=== PATIENT | female | born 1985 | race Caucasian/White ===

== ENCOUNTER → 2016-10-22 | Outpatient (CLI) | payer BC ==
[~2016-10-22] MED LIST: HYDR-3702 PO; IBUP-15 PO; NORG1TAB15 PO; PREN1TAB79 PO
--- NOTE | 2016-10-22 14:53 | Diagnostic Imaging Report ---
PROCEDURE: CT sinuses without contrast TECHNIQUE: Multiple contiguous axial images were obtained through the sinuses without the use of intravenous contrast. Coronal and sagittal reformations were then performed. INDICATION: Abnormal sense of smell. FINDINGS: Bone windows show multiple polyps or retention cysts within the maxillary sinuses; largest along the antrum bilaterally measuring approximately 1 cm. Mild mucosal thickening is noted along the maxillary regan. The ostiomeatal complex shows mucosal thickening bilaterally causing partial obstruction. No bony destruction is seen. The ethmoid sinuses show scattered mucosal edema both in the anterior and posterior ethmoidal air cells bilaterally. The sphenoid sinus shows scattered mucosal thickening as well measuring upward to 3 mm. Mucosal edema is extending into the frontal sinuses bilaterally. There are no air-fluid levels. There are no destructive bony changes. The nasal septum shows mild deviation to the right. The middle nasal turbinates appear normal with no evidence of thomas bullosa. The intranasal turbinates do show mild mucosal hypertrophy or thickening. No destructive bony lesions. The cribriform plate appears intact. IMPRESSION: 1. Findings are consistent with chronic pansinusitis with diffuse retention cyst and/or polyps as well as mucosal thickening throughout. 2. There is mucosal thickening causing moderate obstruction at the ostiomeatal complex of maxillary sinuses bilaterally. Dictated by: Dictated on workstation # [id number]
== END ==
LOC: RAD 13:25
PROVIDERS: ATTEND Family Medicine
DX: R43.8 Other disturbances of smell and taste (principal); J32.4 Chronic pansinusitis
CPT/HCPCS: 70486; 84703